=== PATIENT | female | born 1930 | race Asian ===

== ENCOUNTER 2016-06-06 14:00 | Inpatient (IN) | payer MEDICARE, BC ==
[~2016-06-06] VITALS: Ht 160 cm; Wt 62.1 kg
[~2016-06-06 14:00] MED LIST: ASPI81 PO; ATOR20TA86 PO; CEFU500T41 PO; CLOP75TA32 PO; FAMO40TA7 PO; ISOS30TA6 PO; LATA2.5D2 OU; LEVO100 PO; METO25TA3 PO; VALS80TA26 PO
[2016-06-06 15:00] VITALS: BP 130/73
[2016-06-06 16:22] VITALS: BP 130/73
[2016-06-06] MEDS ORDERED: DOCUSATE SODIUM 283 MG/5 ML MINI-ENEMA PR PRN (16:30)
[2016-06-06] MEDS ORDERED: IPRATROPIUM BROMIDE 0.5 MG/2.5 ML NEB SOLUTION NEB PRN (16:30)
[2016-06-06] MEDS ORDERED: ZOLPIDEM TARTRATE 5 MG TABLET PO PRN (16:30)
[2016-06-06] MEDS ORDERED: ONDANSETRON HCL 4 MG TABLET PO PRN (16:30)
[2016-06-06] MEDS: HYDROCODONE/ACETAMINOPHEN 5-325 MG TABLET PO PRN (17:43)
[2016-06-06] MEDS: NITROGLYCERIN 2% (1 GM=INCH) PACKET TP SCH (18:34)
[2016-06-06 20:19] LABS: APPEARANCE,URINE CLEAR (CLEAR); GLUCOSE, URINE (UA) NEGATIVE (NEGATIVE); KETONES,URINE NEGATIVE (NEGATIVE); LEUKOCYTE ESTERASE ,URINE NEGATIVE (NEGATIVE); OCCULT BLOOD,URINE NEGATIVE (NEGATIVE); PH,URINE 6.5 (5.0-8.0); PROTEIN,URINE NEGATIVE (NEGATIVE)
[2016-06-06 20:35] LABS: SQUAMOUS EPITHELIAL CELL,UR Few /LPF (None Seen)
[2016-06-06 20:36] LABS: RBC,URINE 0-2 /HPF (0-2); WBC,URINE 0-2 /HPF (0-5)
[2016-06-06] MEDS ORDERED: DOCUSATE SODIUM 100 MG CAPSULE PO SCH (21:00)
[2016-06-06] MEDS ORDERED: SENNA 187 MG TABLET PO SCH (21:00)
[2016-06-06] MEDS: METOPROLOL SUCCINATE 25 MG ER TABLET PO SCH (21:01)
[2016-06-06] MEDS: LATANOPROST 0.005% 2.5 ML OPHTHALMIC SOLUTION OU SCH (21:01)
[2016-06-06] MEDS: CEFUROXIME AXETIL 250 MG TABLET PO SCH (21:01)
[2016-06-06] MEDS ORDERED: TEMAZEPAM 15 MG CAPSULE PO PRN (22:30)
[2016-06-07] VITALS: BP 147/73
[2016-06-07] MEDS ORDERED: INFLUENZA VIRUS VACCINE QVS 2016-17 (3YR+)/PF 60 MCG/0.5 ML SYRINGE IM ONE (00:15)
[2016-06-07] MEDS: NITROGLYCERIN 2% (1 GM=INCH) PACKET TP SCH ×4 (01:25→18:50)
[2016-06-07] MEDS: LEVOTHYROXINE SODIUM 100 MCG TABLET PO SCH (05:42)
[2016-06-07] MEDS: DOCUSATE SODIUM 283 MG/5 ML MINI-ENEMA PR SCH ×2 (05:43→09:00)
[2016-06-07 06:00] VITALS: BP 131/59
[2016-06-07 08:58] LABS: BASOPHILS % (AUTO) 0.4 % (0.0-2.0); EOSINOPHILS % (AUTO) 2.4 % (1.0-6.0); HEMATOCRIT 33.1 % (36-46); HEMOGLOBIN 10.9 g/dL (12.0-16.0); LYMPHOCYTES # (AUTO) 2.2 K/uL (1.0-4.8); LYMPHOCYTES % (AUTO) 21.6 % (22.0-44.0); MEAN CORPUSCULAR HEMOGLOBIN 32.6 pg (26.0-34.0); MEAN CORPUSCULAR VOLUME 99 fL (80-100); MONOCYTES # (AUTO) 1.2 K/uL (0.1-1.0); MONOCYTES % (AUTO) 11.7 % (2.0-9.0); NEUTROPHILS # (AUTO) 6.6 K/uL (1.8-7.7); NEUTROPHILS % (AUTO) 63.9 % (40.0-70.0); PLATELET COUNT (AUTO) 506 K/uL (150-450); RED BLOOD CELL COUNT(AUTO) 3.36 MIL/uL (4.00-5.20); RED CELL DISTRIBUTION WIDTH 14.7 % (11.5-14.5); WHITE BLOOD COUNT (AUTO) 10.3 K/uL (4.5-11.0)
[2016-06-07] MEDS: DOCUSATE SODIUM 100 MG CAPSULE PO SCH ×2 (09:00→21:08)
[2016-06-07 09:11] LABS: ALANINE AMINOTRANSFERASE 24 U/L (12-78); ALBUMIN 3.2 g/dL (3.4-5.0); ANION GAP 9 mmol/L (8-16); ASPARTATE AMINOTRANSFERASE 28 U/L (15-37); BILIRUBIN,TOTAL 1.7 mg/dL (0.1-1.0); CALCIUM, TOTAL 9.3 mg/dL (8.8-10.5); CARBON DIOXIDE 27 mmol/L (22-29); CHLORIDE 104 mmol/L (98-107); CREATININE 0.76 mg/dL (0.60-1.30); GLOMERULAR FILTR. RATE CALC > 60 mL/min (>60); POTASSIUM 4.1 mmol/L (3.5-5.1); SODIUM SERUM 140 mmol/L (136-145); TOTAL PROTEIN, SERUM 7.2 g/dL (6.4-8.2); UREA NITROGEN, BLOOD 9 mg/dL (7-18)
[2016-06-07] MEDS: CEFUROXIME AXETIL 250 MG TABLET PO SCH ×2 (09:14→21:06)
[2016-06-07] MEDS: ASPIRIN 81 MG CHEWABLE TABLET PO SCH (09:14)
[2016-06-07] MEDS: METOPROLOL SUCCINATE 25 MG ER TABLET PO SCH ×2 (09:31→21:07)
[2016-06-07] MEDS: VALSARTAN 80 MG TABLET PO SCH (09:32)
[2016-06-07] MEDS: ATORVASTATIN CALCIUM 20 MG TABLET PO SCH (09:32)
[2016-06-07] MEDS: HYDROCODONE/ACETAMINOPHEN 5-325 MG TABLET PO PRN (10:54)
[2016-06-07 12:20] VITALS: BP 141/59
[2016-06-07 15:59] VITALS: BP 129/59
[2016-06-07] MEDS: SENNA 187 MG TABLET PO SCH (21:06)
[2016-06-07] MEDS: LATANOPROST 0.005% 2.5 ML OPHTHALMIC SOLUTION OU SCH (21:08)
[2016-06-08] VITALS (8 sets, daily range): BP systolic 96–132; BP diastolic 48–61
[2016-06-08] MEDS: NITROGLYCERIN 2% (1 GM=INCH) PACKET TP SCH ×5 (01:07→18:00)
[2016-06-08] MEDS: LEVOTHYROXINE SODIUM 100 MCG TABLET PO SCH (06:01)
[2016-06-08] MEDS: DOCUSATE SODIUM 283 MG/5 ML MINI-ENEMA PR SCH (09:00)
[2016-06-08] MEDS: METOPROLOL SUCCINATE 25 MG ER TABLET PO SCH ×2 (09:00→20:28)
[2016-06-08] MEDS: ATORVASTATIN CALCIUM 20 MG TABLET PO SCH (09:43)
[2016-06-08] MEDS: CEFUROXIME AXETIL 250 MG TABLET PO SCH ×2 (09:44→20:27)
[2016-06-08] MEDS: ASPIRIN 81 MG CHEWABLE TABLET PO SCH (09:45)
[2016-06-08] MEDS: DOCUSATE SODIUM 100 MG CAPSULE PO SCH ×2 (09:45→20:27)
[2016-06-08] MEDS: VALSARTAN 80 MG TABLET PO SCH (09:50)
[2016-06-08] MEDS: HYDROCODONE/ACETAMINOPHEN 5-325 MG TABLET PO PRN (14:15)
[2016-06-08] MEDS ORDERED: CLOP75 PO (20:07)
[2016-06-08] MEDS: LATANOPROST 0.005% 2.5 ML OPHTHALMIC SOLUTION OU SCH (20:27)
[2016-06-08] MEDS: SENNA 187 MG TABLET PO SCH (20:28)
[2016-06-08] MEDS: ACETAMINOPHEN 325 MG TABLET PO PRN (20:33)
[2016-06-09 00:30] VITALS: BP 120/50
[2016-06-09 06:00] VITALS: BP 121/54
[2016-06-09] MEDS: NITROGLYCERIN 2% (1 GM=INCH) PACKET TP SCH ×3 (06:00→12:00)
[2016-06-09] MEDS: LEVOTHYROXINE SODIUM 100 MCG TABLET PO SCH (06:11)
[2016-06-09 07:56] VITALS: BP 140/60
[2016-06-09] MEDS: CEFUROXIME AXETIL 250 MG TABLET PO SCH ×2 (08:06→20:30)
[2016-06-09] MEDS: METOPROLOL SUCCINATE 25 MG ER TABLET PO SCH (08:06)
[2016-06-09] MEDS: ASPIRIN 81 MG CHEWABLE TABLET PO SCH (08:06)
[2016-06-09] MEDS: VALSARTAN 80 MG TABLET PO SCH (08:06)
[2016-06-09] MEDS: ATORVASTATIN CALCIUM 20 MG TABLET PO SCH (08:06)
[2016-06-09] MEDS: ACETAMINOPHEN 325 MG TABLET PO PRN (08:07)
[2016-06-09] MEDS: DOCUSATE SODIUM 250 MG CAPSULE PO SCH ×2 (08:39→20:31)
[2016-06-09] MEDS: HYDROCODONE/ACETAMINOPHEN 5-325 MG TABLET PO PRN (10:46)
[2016-06-09 12:54] VITALS: BP 98/54
[2016-06-09 15:15] VITALS: BP 109/60
[2016-06-09] MEDS: DICLOFENAC SODIUM 1% 100 GM GEL [4GM] TP SCH (20:30)
[2016-06-09] MEDS: SENNA 187 MG TABLET PO SCH (20:30)
[2016-06-09] MEDS: LATANOPROST 0.005% 2.5 ML OPHTHALMIC SOLUTION OU SCH (20:31)
[2016-06-10 00:18] VITALS: BP 121/58
[2016-06-10] MEDS: LEVOTHYROXINE SODIUM 100 MCG TABLET PO SCH (05:39)
[2016-06-10 06:50] LABS: BASOPHILS % (AUTO) 0.3 % (0.0-2.0); EOSINOPHILS % (AUTO) 2.4 % (1.0-6.0); HEMATOCRIT 33.1 % (36-46); HEMOGLOBIN 10.7 g/dL (12.0-16.0); LYMPHOCYTES # (AUTO) 2.4 K/uL (1.0-4.8); MEAN CORPUSCULAR HEMOGLOBIN 32.6 pg (26.0-34.0); MEAN CORPUSCULAR HGB CONC 32.4 G/dL (31.0-37.0); MEAN CORPUSCULAR VOLUME 101 fL (80-100); MONOCYTES # (AUTO) 0.9 K/uL (0.1-1.0); MONOCYTES % (AUTO) 8.3 % (2.0-9.0); NEUTROPHILS # (AUTO) 6.8 K/uL (1.8-7.7); PLATELET COUNT (AUTO) 543 K/uL (150-450); RED BLOOD CELL COUNT(AUTO) 3.29 MIL/uL (4.00-5.20); RED CELL DISTRIBUTION WIDTH 15.9 % (11.5-14.5); WHITE BLOOD COUNT (AUTO) 10.4 K/uL (4.5-11.0)
[2016-06-10 07:14] LABS: ALANINE AMINOTRANSFERASE 22 U/L (12-78); ALBUMIN 3.2 g/dL (3.4-5.0); ANION GAP 8 mmol/L (8-16); ASPARTATE AMINOTRANSFERASE 24 U/L (15-37); BILIRUBIN,TOTAL 1.3 mg/dL (0.1-1.0); CALCIUM, TOTAL 9.5 mg/dL (8.8-10.5); CARBON DIOXIDE 26 mmol/L (22-29); CHLORIDE 105 mmol/L (98-107); CREATININE 0.77 mg/dL (0.60-1.30); GLOMERULAR FILTR. RATE CALC > 60 mL/min (>60); POTASSIUM 4.2 mmol/L (3.5-5.1); SODIUM SERUM 139 mmol/L (136-145); TOTAL PROTEIN, SERUM 6.9 g/dL (6.4-8.2); UREA NITROGEN, BLOOD 8 mg/dL (7-18)
[2016-06-10 07:27] VITALS: BP 109/71
[2016-06-10 07:57] LABS: RBC MORPHOLOGY COMMENT ABNORMAL RBC MORPH
[2016-06-10] MEDS: DOCUSATE SODIUM 250 MG CAPSULE PO SCH ×2 (08:11→21:01)
[2016-06-10] MEDS: CEFUROXIME AXETIL 250 MG TABLET PO SCH ×2 (08:11→21:01)
[2016-06-10] MEDS: ATORVASTATIN CALCIUM 20 MG TABLET PO SCH (08:11)
[2016-06-10] MEDS: ASPIRIN 81 MG CHEWABLE TABLET PO SCH (08:12)
[2016-06-10] MEDS: DICLOFENAC SODIUM 1% 100 GM GEL [4GM] TP SCH ×2 (08:13→21:02)
[2016-06-10] MEDS: VALSARTAN 40 MG TABLET PO SCH (08:16)
[2016-06-10] MEDS: HYDROCODONE/ACETAMINOPHEN 5-325 MG TABLET PO PRN ×2 (08:40→13:41)
[2016-06-10 15:00] VITALS: BP 126/51
[2016-06-10] MEDS: LATANOPROST 0.005% 2.5 ML OPHTHALMIC SOLUTION OU SCH (21:01)
[2016-06-10] MEDS: SENNA 187 MG TABLET PO SCH (21:01)
[2016-06-10] MEDS: METOPROLOL SUCCINATE 25 MG ER TABLET PO SCH (21:02)
[2016-06-10 21:07] VITALS: BP 123/52
[2016-06-11 02:00] VITALS: BP 149/63
[2016-06-11] MEDS: LEVOTHYROXINE SODIUM 100 MCG TABLET PO SCH (06:14)
[2016-06-11 07:22] VITALS: BP 115/61
[2016-06-11] MEDS: ATORVASTATIN CALCIUM 20 MG TABLET PO SCH (07:59)
[2016-06-11] MEDS: ASPIRIN 81 MG CHEWABLE TABLET PO SCH (07:59)
[2016-06-11] MEDS: VALSARTAN 40 MG TABLET PO SCH (07:59)
[2016-06-11] MEDS: DOCUSATE SODIUM 250 MG CAPSULE PO SCH ×2 (07:59→20:36)
[2016-06-11] MEDS: DICLOFENAC SODIUM 1% 100 GM GEL [4GM] TP SCH ×2 (08:00→20:36)
[2016-06-11] MEDS: HYDROCODONE/ACETAMINOPHEN 5-325 MG TABLET PO PRN (08:01)
[2016-06-11 15:22] VITALS: BP 121/63
[2016-06-11] MEDS: ACETAMINOPHEN 325 MG TABLET PO PRN (17:18)
[2016-06-11] MEDS: METOPROLOL SUCCINATE 25 MG ER TABLET PO SCH ×2 (20:36→20:50)
[2016-06-11] MEDS: SENNA 187 MG TABLET PO SCH (20:36)
[2016-06-11 20:50] VITALS: BP 108/70
[2016-06-11] MEDS: LATANOPROST 0.005% 2.5 ML OPHTHALMIC SOLUTION OU SCH (21:00)
[2016-06-12 00:28] VITALS: BP 118/52
[2016-06-12] MEDS: ACETAMINOPHEN 325 MG TABLET PO PRN (00:28)
[2016-06-12] MEDS: LEVOTHYROXINE SODIUM 100 MCG TABLET PO SCH (05:41)
[2016-06-12 07:35] VITALS: BP 132/47
[2016-06-12] MEDS: DOCUSATE SODIUM 250 MG CAPSULE PO SCH ×2 (09:00→20:28)
[2016-06-12] MEDS: VALSARTAN 40 MG TABLET PO SCH (09:00)
[2016-06-12 09:36] VITALS: BP 115/44
[2016-06-12] MEDS: ATORVASTATIN CALCIUM 20 MG TABLET PO SCH (09:36)
[2016-06-12] MEDS: HYDROCODONE/ACETAMINOPHEN 5-325 MG TABLET PO PRN (09:36)
[2016-06-12] MEDS: ASPIRIN 81 MG CHEWABLE TABLET PO SCH (09:36)
[2016-06-12] MEDS: DICLOFENAC SODIUM 1% 100 GM GEL [4GM] TP SCH ×2 (09:37→20:29)
[2016-06-12 15:33] VITALS: BP 132/67
[2016-06-12] MEDS: METOPROLOL SUCCINATE 25 MG ER TABLET PO SCH (20:28)
[2016-06-12] MEDS: LATANOPROST 0.005% 2.5 ML OPHTHALMIC SOLUTION OU SCH (20:28)
[2016-06-12] MEDS: SENNA 187 MG TABLET PO SCH (20:29)
[2016-06-12 20:34] VITALS: BP 139/56
[2016-06-13 01:08] VITALS: BP 135/67
[2016-06-13] MEDS: LEVOTHYROXINE SODIUM 100 MCG TABLET PO SCH (06:03)
[2016-06-13 07:58] VITALS: BP 151/74
[2016-06-13] MEDS: ASPIRIN 81 MG CHEWABLE TABLET PO SCH (09:39)
[2016-06-13] MEDS: DICLOFENAC SODIUM 1% 100 GM GEL [4GM] TP SCH ×2 (09:39→20:22)
[2016-06-13] MEDS: ATORVASTATIN CALCIUM 20 MG TABLET PO SCH (09:39)
[2016-06-13] MEDS: DOCUSATE SODIUM 250 MG CAPSULE PO SCH ×2 (09:39→20:11)
[2016-06-13] MEDS: VALSARTAN 40 MG TABLET PO SCH (09:39)
[2016-06-13] MEDS: HYDROCODONE/ACETAMINOPHEN 5-325 MG TABLET PO PRN ×2 (10:10→14:14)
[2016-06-13 15:32] VITALS: BP 105/50
[2016-06-13] MEDS: SENNA 187 MG TABLET PO SCH (20:11)
[2016-06-13] MEDS: METOPROLOL SUCCINATE 25 MG ER TABLET PO SCH (20:21)
[2016-06-13] MEDS: LATANOPROST 0.005% 2.5 ML OPHTHALMIC SOLUTION OU SCH (20:22)
[2016-06-13 20:25] VITALS: BP 141/55
[2016-06-13] MEDS: ACETAMINOPHEN 325 MG TABLET PO PRN (20:25)
[2016-06-13 23:23] VITALS: BP 131/56
[2016-06-14] MEDS: LEVOTHYROXINE SODIUM 100 MCG TABLET PO SCH (06:39)
[2016-06-14 07:43] VITALS: BP 136/65
[2016-06-14] MEDS: ASPIRIN 81 MG CHEWABLE TABLET PO SCH (08:46)
[2016-06-14] MEDS: DOCUSATE SODIUM 250 MG CAPSULE PO SCH ×2 (08:46→20:48)
[2016-06-14] MEDS: DICLOFENAC SODIUM 1% 100 GM GEL [4GM] TP SCH ×2 (08:46→20:47)
[2016-06-14] MEDS: ACETAMINOPHEN 325 MG TABLET PO PRN (08:46)
[2016-06-14] MEDS: VALSARTAN 40 MG TABLET PO SCH (08:47)
[2016-06-14] MEDS: ATORVASTATIN CALCIUM 20 MG TABLET PO SCH (08:47)
[2016-06-14] MEDS: HYDROCODONE/ACETAMINOPHEN 5-325 MG TABLET PO PRN ×2 (13:22→20:48)
[2016-06-14 15:47] VITALS: BP 135/66
[2016-06-14 20:42] VITALS: BP 101/50
[2016-06-14] MEDS: LATANOPROST 0.005% 2.5 ML OPHTHALMIC SOLUTION OU SCH (20:47)
[2016-06-14] MEDS: SENNA 187 MG TABLET PO SCH (20:48)
[2016-06-14] MEDS: METOPROLOL SUCCINATE 25 MG ER TABLET PO SCH (20:49)
[2016-06-15] VITALS: BP 110/70
[2016-06-15] MEDS: LEVOTHYROXINE SODIUM 100 MCG TABLET PO SCH (06:07)
[2016-06-15 07:39] VITALS: BP 111/86
[2016-06-15] MEDS: VALSARTAN 40 MG TABLET PO SCH (08:05)
[2016-06-15] MEDS: DOCUSATE SODIUM 250 MG CAPSULE PO SCH ×2 (08:05→20:30)
[2016-06-15] MEDS: ATORVASTATIN CALCIUM 20 MG TABLET PO SCH (08:05)
[2016-06-15] MEDS: DICLOFENAC SODIUM 1% 100 GM GEL [4GM] TP SCH ×2 (08:05→20:30)
[2016-06-15] MEDS: ASPIRIN 81 MG CHEWABLE TABLET PO SCH (08:05)
[2016-06-15] MEDS: HYDROCODONE/ACETAMINOPHEN 5-325 MG TABLET PO PRN ×2 (12:25→18:52)
[2016-06-15 16:21] VITALS: BP 106/54
[2016-06-15] MEDS: LATANOPROST 0.005% 2.5 ML OPHTHALMIC SOLUTION OU SCH (20:29)
[2016-06-15] MEDS: ACETAMINOPHEN 325 MG TABLET PO PRN (20:29)
[2016-06-15] MEDS: SENNA 187 MG TABLET PO SCH (20:30)
[2016-06-15] MEDS: METOPROLOL SUCCINATE 25 MG ER TABLET PO SCH (20:30)
[2016-06-15 23:54] VITALS: BP 120/51
[2016-06-16] MEDS: LEVOTHYROXINE SODIUM 100 MCG TABLET PO SCH (05:37)
[2016-06-16 07:30] VITALS: BP 135/52
[2016-06-16] MEDS: VALSARTAN 40 MG TABLET PO SCH (08:51)
[2016-06-16] MEDS: ASPIRIN 81 MG CHEWABLE TABLET PO SCH (08:51)
[2016-06-16] MEDS: DICLOFENAC SODIUM 1% 100 GM GEL [4GM] TP SCH ×2 (08:51→20:04)
[2016-06-16] MEDS: DOCUSATE SODIUM 250 MG CAPSULE PO SCH ×2 (08:51→20:05)
[2016-06-16] MEDS: ATORVASTATIN CALCIUM 20 MG TABLET PO SCH (08:51)
[2016-06-16 15:48] VITALS: BP 118/57
[2016-06-16] MEDS: ACETAMINOPHEN 325 MG TABLET PO PRN (16:04)
[2016-06-16 20:00] VITALS: BP 143/60
[2016-06-16] MEDS: LATANOPROST 0.005% 2.5 ML OPHTHALMIC SOLUTION OU SCH (20:04)
[2016-06-16] MEDS: METOPROLOL SUCCINATE 25 MG ER TABLET PO SCH (20:04)
[2016-06-16] MEDS: SENNA 187 MG TABLET PO SCH (20:05)
[2016-06-16] MEDS: HYDROCODONE/ACETAMINOPHEN 5-325 MG TABLET PO PRN (20:28)
[2016-06-17] VITALS: BP 141/69
[2016-06-17] MEDS: LEVOTHYROXINE SODIUM 100 MCG TABLET PO SCH (05:48)
[2016-06-17 07:07] LABS: BASOPHILS % (AUTO) 1.5 % (0.0-2.0); EOSINOPHILS % (AUTO) 4.5 % (1.0-6.0); HEMATOCRIT 36.5 % (36-46); LYMPHOCYTES # (AUTO) 2.3 K/uL (1.0-4.8); LYMPHOCYTES % (AUTO) 29.6 % (22.0-44.0); MEAN CORPUSCULAR HEMOGLOBIN 33.3 pg (26.0-34.0); MEAN CORPUSCULAR HGB CONC 32.9 G/dL (31.0-37.0); MEAN CORPUSCULAR VOLUME 101 fL (80-100); MONOCYTES # (AUTO) 0.8 K/uL (0.1-1.0); MONOCYTES % (AUTO) 10.5 % (2.0-9.0); NEUTROPHILS # (AUTO) 4.2 K/uL (1.8-7.7); NEUTROPHILS % (AUTO) 53.9 % (40.0-70.0); PLATELET COUNT (AUTO) 276 K/uL (150-450); RED BLOOD CELL COUNT(AUTO) 3.61 MIL/uL (4.00-5.20); RED CELL DISTRIBUTION WIDTH 17.1 % (11.5-14.5)
[2016-06-17 07:30] VITALS: BP 142/63
[2016-06-17 07:34] LABS: ALANINE AMINOTRANSFERASE 19 U/L (12-78); ALBUMIN 3.5 g/dL (3.4-5.0); ANION GAP 9 mmol/L (8-16); ASPARTATE AMINOTRANSFERASE 29 U/L (15-37); BILIRUBIN,TOTAL 1.2 mg/dL (0.1-1.0); CALCIUM, TOTAL 9.6 mg/dL (8.8-10.5); CARBON DIOXIDE 25 mmol/L (22-29); CHLORIDE 105 mmol/L (98-107); CREATININE 0.74 mg/dL (0.60-1.30); GLOMERULAR FILTR. RATE CALC > 60 mL/min (>60); POTASSIUM 3.9 mmol/L (3.5-5.1); SODIUM SERUM 139 mmol/L (136-145); TOTAL PROTEIN, SERUM 7.4 g/dL (6.4-8.2); UREA NITROGEN, BLOOD 11 mg/dL (7-18)
[2016-06-17 07:50] LABS: RBC MORPHOLOGY COMMENT ABNORMAL RBC MORPH
[2016-06-17] MEDS: DOCUSATE SODIUM 250 MG CAPSULE PO SCH ×3 (08:53→20:15)
[2016-06-17] MEDS: ATORVASTATIN CALCIUM 20 MG TABLET PO SCH (08:53)
[2016-06-17] MEDS: VALSARTAN 40 MG TABLET PO SCH (08:53)
[2016-06-17] MEDS: ASPIRIN 81 MG CHEWABLE TABLET PO SCH (08:54)
[2016-06-17] MEDS: HYDROCODONE/ACETAMINOPHEN 5-325 MG TABLET PO PRN (08:54)
[2016-06-17] MEDS: DICLOFENAC SODIUM 1% 100 GM GEL [4GM] TP SCH ×2 (08:55→20:15)
[2016-06-17 15:52] VITALS: BP 122/61
[2016-06-17 20:00] VITALS: BP 115/71
[2016-06-17] MEDS: METOPROLOL SUCCINATE 25 MG ER TABLET PO SCH (20:14)
[2016-06-17] MEDS: ACETAMINOPHEN 325 MG TABLET PO PRN (20:14)
[2016-06-17] MEDS: SENNA 187 MG TABLET PO SCH (20:15)
[2016-06-17] MEDS: LATANOPROST 0.005% 2.5 ML OPHTHALMIC SOLUTION OU SCH (20:15)
[2016-06-17 22:05] LABS: APPEARANCE,URINE CLOUDY (CLEAR); GLUCOSE, URINE (UA) NEGATIVE (NEGATIVE); KETONES,URINE NEGATIVE (NEGATIVE); LEUKOCYTE ESTERASE ,URINE LARGE (NEGATIVE); OCCULT BLOOD,URINE MODERATE (NEGATIVE); PROTEIN,URINE NEGATIVE (NEGATIVE)
[2016-06-17 22:18] LABS: WBC,URINE 51-100 /HPF (0-5)
[2016-06-17 22:26] LABS: SQUAMOUS EPITHELIAL CELL,UR Few /LPF (None Seen)
[2016-06-17 22:27] LABS: TRANSITIONAL EPI CELLS,URINE Few /LPF (None Seen)
[2016-06-18 01:43] VITALS: BP 148/62
[2016-06-18] MEDS: LEVOTHYROXINE SODIUM 100 MCG TABLET PO SCH (06:02)
[2016-06-18 07:47] VITALS: BP 131/66
[2016-06-18] MEDS: VALSARTAN 40 MG TABLET PO SCH (08:06)
[2016-06-18] MEDS: DOCUSATE SODIUM 250 MG CAPSULE PO SCH ×2 (08:07→20:31)
[2016-06-18] MEDS: ATORVASTATIN CALCIUM 20 MG TABLET PO SCH (08:07)
[2016-06-18] MEDS: ASPIRIN 81 MG CHEWABLE TABLET PO SCH (08:07)
[2016-06-18] MEDS: HYDROCODONE/ACETAMINOPHEN 5-325 MG TABLET PO PRN ×2 (08:07→20:31)
[2016-06-18] MEDS: DICLOFENAC SODIUM 1% 100 GM GEL [4GM] TP SCH ×2 (08:08→20:32)
[2016-06-18] MEDS: ACETAMINOPHEN 325 MG TABLET PO PRN (14:32)
[2016-06-18 15:32] VITALS: BP 116/57
[2016-06-18 20:28] VITALS: BP 136/59
[2016-06-18] MEDS: LATANOPROST 0.005% 2.5 ML OPHTHALMIC SOLUTION OU SCH (20:30)
[2016-06-18] MEDS: SENNA 187 MG TABLET PO SCH (20:31)
[2016-06-18] MEDS: METOPROLOL SUCCINATE 25 MG ER TABLET PO SCH (20:31)
[2016-06-19 01:00] VITALS: BP 132/60
[2016-06-19] MEDS: LEVOTHYROXINE SODIUM 100 MCG TABLET PO SCH (06:09)
[2016-06-19 07:51] VITALS: BP 164/67
[2016-06-19] MEDS: ASPIRIN 81 MG CHEWABLE TABLET PO SCH (07:51)
[2016-06-19] MEDS: ATORVASTATIN CALCIUM 20 MG TABLET PO SCH (07:51)
[2016-06-19] MEDS: VALSARTAN 40 MG TABLET PO SCH (07:51)
[2016-06-19] MEDS: DOCUSATE SODIUM 250 MG CAPSULE PO SCH ×2 (07:51→20:32)
[2016-06-19] MEDS: DICLOFENAC SODIUM 1% 100 GM GEL [4GM] TP SCH ×2 (07:52→20:31)
[2016-06-19] MEDS: HYDROCODONE/ACETAMINOPHEN 5-325 MG TABLET PO PRN ×2 (07:53→13:30)
[2016-06-19 15:14] VITALS: BP 119/65
[2016-06-19] MEDS: LATANOPROST 0.005% 2.5 ML OPHTHALMIC SOLUTION OU SCH (20:30)
[2016-06-19] MEDS: METOPROLOL SUCCINATE 25 MG ER TABLET PO SCH (20:30)
[2016-06-19] MEDS: SENNA 187 MG TABLET PO SCH (20:30)
[2016-06-19] MEDS: ACETAMINOPHEN 325 MG TABLET PO PRN (23:19)
[2016-06-19 23:22] VITALS: BP 111/54
[2016-06-20] MEDS: LEVOTHYROXINE SODIUM 100 MCG TABLET PO SCH (06:09)
[2016-06-20 07:20] VITALS: BP 137/58
[2016-06-20] MEDS: HYDROCODONE/ACETAMINOPHEN 5-325 MG TABLET PO PRN ×2 (07:21→17:36)
[2016-06-20] MEDS: VALSARTAN 40 MG TABLET PO SCH (09:18)
[2016-06-20] MEDS: ATORVASTATIN CALCIUM 20 MG TABLET PO SCH (09:18)
[2016-06-20] MEDS: ASPIRIN 81 MG CHEWABLE TABLET PO SCH (09:18)
[2016-06-20] MEDS: DICLOFENAC SODIUM 1% 100 GM GEL [4GM] TP SCH ×2 (09:19→21:05)
[2016-06-20] MEDS: DOCUSATE SODIUM 250 MG CAPSULE PO SCH ×2 (09:24→21:05)
[2016-06-20 15:00] VITALS: BP 137/73
[2016-06-20] MEDS ORDERED: LEVOFLOXACIN 500 MG TABLET PO ONE (17:45)
[2016-06-20 20:50] VITALS: BP 125/54
[2016-06-20] MEDS: METOPROLOL SUCCINATE 25 MG ER TABLET PO SCH (21:05)
[2016-06-20] MEDS: LATANOPROST 0.005% 2.5 ML OPHTHALMIC SOLUTION OU SCH (21:05)
[2016-06-20] MEDS: SENNA 187 MG TABLET PO SCH (21:05)
[2016-06-20 23:31] VITALS: BP 111/57
[2016-06-21] MEDS: LEVOTHYROXINE SODIUM 100 MCG TABLET PO SCH (06:22)
[2016-06-21 06:54] VITALS: BP 138/68
[2016-06-21] MEDS: ATORVASTATIN CALCIUM 20 MG TABLET PO SCH (08:07)
[2016-06-21] MEDS: ASPIRIN 81 MG CHEWABLE TABLET PO SCH (08:07)
[2016-06-21] MEDS: VALSARTAN 40 MG TABLET PO SCH (08:07)
[2016-06-21] MEDS: DICLOFENAC SODIUM 1% 100 GM GEL [4GM] TP SCH ×2 (08:07→20:11)
[2016-06-21] MEDS: LEVOFLOXACIN 500 MG TABLET PO SCH (08:07)
[2016-06-21] MEDS: DOCUSATE SODIUM 250 MG CAPSULE PO SCH ×2 (08:07→20:11)
[2016-06-21] MEDS: HYDROCODONE/ACETAMINOPHEN 5-325 MG TABLET PO PRN (09:34)
[2016-06-21 15:30] VITALS: BP 111/48
[2016-06-21 20:00] VITALS: BP 125/60
[2016-06-21] MEDS: METOPROLOL SUCCINATE 25 MG ER TABLET PO SCH (20:10)
[2016-06-21] MEDS: LATANOPROST 0.005% 2.5 ML OPHTHALMIC SOLUTION OU SCH (20:10)
[2016-06-21] MEDS: SENNA 187 MG TABLET PO SCH (20:10)
[2016-06-22 00:04] VITALS: BP 139/64
[2016-06-22] MEDS: HYDROCODONE/ACETAMINOPHEN 5-325 MG TABLET PO PRN ×3 (04:40→20:08)
[2016-06-22] MEDS: LEVOTHYROXINE SODIUM 100 MCG TABLET PO SCH (06:26)
[2016-06-22 07:30] VITALS: BP 149/70
[2016-06-22] MEDS: DICLOFENAC SODIUM 1% 100 GM GEL [4GM] TP SCH ×2 (08:16→20:01)
[2016-06-22] MEDS: DOCUSATE SODIUM 250 MG CAPSULE PO SCH ×2 (08:16→20:01)
[2016-06-22] MEDS: ASPIRIN 81 MG CHEWABLE TABLET PO SCH (08:16)
[2016-06-22] MEDS: LEVOFLOXACIN 500 MG TABLET PO SCH (08:16)
[2016-06-22] MEDS: ATORVASTATIN CALCIUM 20 MG TABLET PO SCH (08:16)
[2016-06-22] MEDS: VALSARTAN 40 MG TABLET PO SCH (08:16)
[2016-06-22 11:08] VITALS: BP 130/55
[2016-06-22] MEDS ORDERED: LEVO500 PO (14:00)
[2016-06-22 15:40] VITALS: BP 133/68
[2016-06-22 20:00] VITALS: BP 117/63
[2016-06-22] MEDS: SENNA 187 MG TABLET PO SCH (20:01)
[2016-06-22] MEDS: METOPROLOL SUCCINATE 25 MG ER TABLET PO SCH (20:01)
[2016-06-22] MEDS: LATANOPROST 0.005% 2.5 ML OPHTHALMIC SOLUTION OU SCH (20:01)
[2016-06-23] VITALS: BP 128/64
[2016-06-23] MEDS: LEVOTHYROXINE SODIUM 100 MCG TABLET PO SCH (06:10)
[2016-06-23 07:00] VITALS: BP 140/55
[2016-06-23] MEDS: LEVOFLOXACIN 500 MG TABLET PO SCH (09:06)
[2016-06-23] MEDS: VALSARTAN 40 MG TABLET PO SCH (09:06)
[2016-06-23] MEDS: ATORVASTATIN CALCIUM 20 MG TABLET PO SCH (09:06)
[2016-06-23] MEDS: ASPIRIN 81 MG CHEWABLE TABLET PO SCH (09:07)
[2016-06-23] MEDS: DICLOFENAC SODIUM 1% 100 GM GEL [4GM] TP SCH ×2 (09:07→19:58)
[2016-06-23] MEDS: DOCUSATE SODIUM 250 MG CAPSULE PO SCH ×2 (09:11→19:57)
[2016-06-23 15:53] VITALS: BP 120/56
[2016-06-23] MEDS: ACETAMINOPHEN 325 MG TABLET PO PRN (16:04)
[2016-06-23] MEDS: METOPROLOL SUCCINATE 25 MG ER TABLET PO SCH (19:57)
[2016-06-23] MEDS: LATANOPROST 0.005% 2.5 ML OPHTHALMIC SOLUTION OU SCH (19:57)
[2016-06-23] MEDS: SENNA 187 MG TABLET PO SCH (19:57)
[2016-06-23 19:58] VITALS: BP 117/49
[2016-06-23] MEDS: HYDROCODONE/ACETAMINOPHEN 5-325 MG TABLET PO PRN (21:18)
[2016-06-24 00:46] VITALS: BP 139/55
[2016-06-24] MEDS ORDERED: VALS40TA4 PO (03:30)
[2016-06-24] MEDS: ACETAMINOPHEN 325 MG TABLET PO PRN (03:49)
[2016-06-24] MEDS ORDERED: DOCU250C91 PO (04:00)
[2016-06-24] MEDS ORDERED: ACET-2902 PO (04:06)
[2016-06-24] MEDS ORDERED: DICL4100G TP (04:10)
[2016-06-24] MEDS: LEVOTHYROXINE SODIUM 100 MCG TABLET PO SCH (05:55)
[2016-06-24 07:30] VITALS: BP 140/56
[2016-06-24] MEDS: VALSARTAN 40 MG TABLET PO SCH (08:58)
[2016-06-24] MEDS: DOCUSATE SODIUM 250 MG CAPSULE PO SCH (08:58)
[2016-06-24] MEDS: ATORVASTATIN CALCIUM 20 MG TABLET PO SCH (08:58)
[2016-06-24] MEDS: DICLOFENAC SODIUM 1% 100 GM GEL [4GM] TP SCH (08:58)
[2016-06-24] MEDS: LEVOFLOXACIN 500 MG TABLET PO SCH (08:58)
[2016-06-24] MEDS: ASPIRIN 81 MG CHEWABLE TABLET PO SCH (08:59)
[2016-06-24] MEDS: HYDROCODONE/ACETAMINOPHEN 5-325 MG TABLET PO PRN (10:30)
[2016-06-24] MEDS ORDERED: NITROGLYCERIN 0.3 MG SUBLINGUAL TABLET #100 SL PRN ×2 (10:30→12:00)
[2016-06-24] MEDS ORDERED: HYDROCODONE/ACETAMINOPHEN 5-325 MG TABLET PO PRN (11:45)
[2016-06-24] MEDS ORDERED: NITR.3 SL (12:21)
[2016-06-24] MEDS ORDERED: HYDR-309 PO (12:21)
== END 2016-06-24 13:40 | disposition home or self-care (01) | DRG 559 ==
LOC: 2WR 14:00
PROVIDERS: ADMIT Physical Medicine & Rehabilitation
PROC: 3E0234Z Introduction of Serum, Toxoid and Vaccine into Muscle, Percutaneous Approach (ICD-10-PCS; principal; 2016-06-07)
DX: S89.292D Other physeal fracture of upper end of left fibula, subsequent encounter for fracture with routine healing (principal); I21.4 Non-ST elevation (NSTEMI) myocardial infarction; N39.0 Urinary tract infection, site not specified; G40.909 Epilepsy, unspecified, not intractable, without status epilepticus; I48.91 Unspecified atrial fibrillation; R32 Unspecified urinary incontinence; M85.80 Other specified disorders of bone density and structure, unspecified site; E03.9 Hypothyroidism, unspecified; H40.9 Unspecified glaucoma; K21.9 Gastro-esophageal reflux disease without esophagitis; K59.00 Constipation, unspecified; I50.9 Heart failure, unspecified; I11.0 Hypertensive heart disease with heart failure; D64.9 Anemia, unspecified; I25.10 Atherosclerotic heart disease of native coronary artery without angina pectoris; Z98.890 Other specified postprocedural states; Z23 Encounter for immunization; Z86.73 Personal history of transient ischemic attack (TIA), and cerebral infarction without residual deficits; Z87.440 Personal history of urinary (tract) infections
CPT/HCPCS: 83735; 87081; 87086; 90471; 92523; 93005; 93970; 97110; 97112; 97116; 97150; 97163; 97167; 97530; 97535; 99366

== ENCOUNTER 2017-02-28 14:20 | Emergency (ER) | payer MEDICARE, BC ==
[~2017-02-28] VITALS: Ht 157.5 cm; Wt 63.6 kg
[~2017-02-28 14:20] MED LIST changes: +ACET-2902 PO; -CEFU500T41 PO; -CLOP75TA32 PO; +DICL4100G TP; +DOCU250C91 PO; +HYDR-309 PO; -ISOS30TA6 PO; +LEVO500 PO; +NITR.3 SL; +VALS40TA4 PO; -VALS80TA26 PO
[2017-02-28 15:54] LABS: BASOPHILS % (AUTO) 0.6 % (0.0-2.0); EOSINOPHILS % (AUTO) 7.3 % (1.0-6.0); HEMATOCRIT 42.6 % (36-46); HEMOGLOBIN 14.3 g/dL (12.0-16.0); LYMPHOCYTES % (AUTO) 26.9 % (22.0-44.0); MEAN CORPUSCULAR HEMOGLOBIN 33.3 pg (26.0-34.0); MEAN CORPUSCULAR HGB CONC 33.6 G/dL (31.0-37.0); MEAN CORPUSCULAR VOLUME 99 fL (80-100); MONOCYTES # (AUTO) 0.6 K/uL (0.1-1.0); MONOCYTES % (AUTO) 8.6 % (2.0-9.0); NEUTROPHILS # (AUTO) 4.2 K/uL (1.8-7.7); NEUTROPHILS % (AUTO) 56.6 % (40.0-70.0); PLATELET COUNT (AUTO) 233 K/uL (150-450); RED BLOOD CELL COUNT(AUTO) 4.29 MIL/uL (4.00-5.20); RED CELL DISTRIBUTION WIDTH 13.1 % (11.5-14.5); WHITE BLOOD COUNT (AUTO) 7.5 K/uL (4.5-11.0)
[2017-02-28 16:03] LABS: LACTIC ACID 1.2 mmol/L (0.4-2.0)
[2017-02-28 17:21] LABS: ANION GAP 8 mmol/L (8-16); CALCIUM, TOTAL 9.9 mg/dL (8.8-10.5); CARBON DIOXIDE 28 mmol/L (22-29); CHLORIDE 105 mmol/L (98-107); CREATININE 0.77 mg/dL (0.60-1.30); GLOMERULAR FILTR. RATE CALC > 60 mL/min (>60); POTASSIUM 3.8 mmol/L (3.5-5.1); SODIUM SERUM 141 mmol/L (136-145); UREA NITROGEN, BLOOD 8 mg/dL (7-18)
[2017-02-28 17:33] LABS: ALANINE AMINOTRANSFERASE 26 U/L (12-78); ALBUMIN 3.9 g/dL (3.4-5.0); ASPARTATE AMINOTRANSFERASE 21 U/L (15-37); BILIRUBIN,TOTAL 0.8 mg/dL (0.1-1.0); TOTAL PROTEIN, SERUM 8.1 g/dL (6.4-8.2)
[2017-02-28 18:00] VITALS: BP 161/80
== END 2017-02-28 19:00 | disposition left against medical advice (07) ==
LOC: EMS 14:23
DX: L03.211 Cellulitis of face (principal); I10 Essential (primary) hypertension; E78.00 Pure hypercholesterolemia, unspecified; K21.9 Gastro-esophageal reflux disease without esophagitis
CPT/HCPCS: 83605; 87040; 99285

== ENCOUNTER 2017-07-01 06:40 | Emergency (ER) | payer MEDICARE, BC ==
[~2017-07-01] VITALS: Ht 160 cm; Wt 0.7 kg
[~2017-07-01 06:40] MED LIST changes: -HYDR-309 PO; -LEVO500 PO
[2017-07-01 07:20] VITALS: BP 133/60
[2017-07-01] MEDS ORDERED: ACETAMINOPHEN 500 MG TABLET PO ONE (07:30)
== END 2017-07-01 08:22 | disposition home or self-care (01) ==
LOC: EMS 06:42
DX: S40.011A Contusion of right shoulder, initial encounter (principal); K21.9 Gastro-esophageal reflux disease without esophagitis; E78.00 Pure hypercholesterolemia, unspecified; I10 Essential (primary) hypertension; Z79.82 Long term (current) use of aspirin; W19.XXXA Unspecified fall, initial encounter; Y93.89 Activity, other specified; Y92.89 Other specified places as the place of occurrence of the external cause; Y99.8 Other external cause status
CPT/HCPCS: 99284

== ENCOUNTER → 2017-08-26 | Outpatient (CLI) | payer MEDICARE, BC ==
[~2017-08-26] MED LIST changes: -ACET-2902 PO; +APIX2.5T PO; +CIP250 PO; +CLOP75 PO; -DICL4100G TP; +DSS100 PO; +FAMO20TA32 PO; +FLUC100T PO; +IOVERSOL 350 MG/ML 100 ML VIAL ONE; +ISOS30TA6 PO; +MUPI1OIN4 NS; +PANT40TA25 PO; +PIPE2.2515 IV; +RANO500T3 PO; +SODIUM CHLORIDE 0.9% 100 ML ONE; +VALS160T2 PO
== END | disposition home or self-care (01) ==
LOC: RADMN 09:00
PROVIDERS: ATTEND Internal Medicine
DX: K35.3 Acute appendicitis with localized peritonitis (principal)
CPT/HCPCS: 74177; 99242; J7050; Q9967